=== PATIENT | male | born 1975 | race Caucasian/White ===

== ENCOUNTER 2020-03-19 10:56 | Outpatient (CLI) | payer OTHER, SELFPAY ==
--- NOTE | ~2020-03-19 | XR_ITS ---
XR thoracic spine 2V DATE: 03/19/2020 11:25 INDICATION: Generalized low back pain, thoracic back pain. No known injury. TECHNIQUE: AP, lateral, swimmer views COMPARISON: None FINDINGS: There is dextroscoliosis of the thoracic spine. No fracture or dislocation or bone destruction. The thoracic pedicles are intact. No paraspinal soft tissue thickening. IMPRESSION: Dextroscoliosis Reviewed, dictated and finalized at location B. ONE PROCESSOR IMPRESSION: Dextroscoliosis
--- NOTE | ~2020-03-19 | XR_ITS ---
XR lumbar spine 2-3V DATE: 03/19/2020 11:25 INDICATION: Generalized low back pain. No recent injury. TECHNIQUE: AP, lateral and coned lateral lumbosacral views COMPARISON: None FINDINGS: There is a lumbarized S1 vertebra. No fracture or bone destruction or spondylolisthesis. Lumbar and lumbosacral interspaces are well pre served. Mild degenerative spurring at L4-5. The sacroiliac joints are intact. IMPRESSION: Lumbarized S1 Mild degenerative change Reviewed, dictated and finalized at location B. X RAY TECHNOLOGIST
== END 2020-03-19 10:57 | disposition home or self-care (01) ==
LOC: CHSIMG 10:57
PROVIDERS: PCP Nurse Practitioner Family; Visit Provider Nurse Practitioner Family
DX: M54.5 Low back pain (principal); M54.6 Pain in thoracic spine
CPT/HCPCS: 72070; 72100

== ENCOUNTER 2020-03-26 07:57 | Outpatient (RCR) | payer OTHER, SELFPAY ==
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
== END 2020-04-16 09:52 | disposition home or self-care (01) ==
LOC: CHSPT 07:57
PROVIDERS: PCP Nurse Practitioner Family; Visit Provider Nurse Practitioner Family
DX: M54.5 Low back pain (principal); M54.6 Pain in thoracic spine
CPT/HCPCS: 97014; 97110; 97161; G0283

== ENCOUNTER 2020-11-26 19:08 | Emergency (ER) | payer OTHER, SELFPAY ==
--- NOTE | ~2020-11-26 | XR_ITS ---
XR chest 2V DATE: 11/26/2020 21:10 INDICATION: Central chest pressure, shortness of breath for 3 days TECHNIQUE: PA and lateral views COMPARISON: None FINDINGS: Normal heart size. No pulmonary infiltrate or consolidation, pleural effusion or pulmonary vascular congestion or pneumothorax. There is mild to moderate dextroscoliosis of the thoracic spine. IMPRESSION: No active cardiopulmonary disease Reviewed, dictated and finalized at location A.
[2020-11-26 19:15] VITALS: BP 132/87; PULSE 92; RESP 20; TEMP 36.9; O2SAT 98
--- NOTE | 2020-11-26 19:46 | ED.SOB ---
HPI - SOB/Dyspnea General Chief Complaint: Upper Respiratory Infection Stated Complaint: fatigue/trouble breathing Time Seen by Provider: 11/26/20 19:47 Source: patient Mode of arrival: ambulatory Limitations: no limitations History of Present Illness HPI Narrative: 45-year-old man with a history of smoking comes in today complaining of chest tightness, shortness of breath cough and nasal congestion. States the shortness of breath is worse during the coughing episodes. He noticed that today during his outdoor walk that he was walking slower than usual. He denies prior similar symptoms. States that he had asthma when he was younger. He was exposed to Covid during a social event 2 days ago. MD elicited complaint: shortness of breath, cough and pain with inspiration ( Chest tightness) Pertinent past history: asthma Onset (ago): day(s) (2) Timing: constant and progressively worsening Severity: moderate Exacerbating factors: coughing and inspiration Relieving factors: rest Known history of: asthma Associated symptoms: chest pain ( chest tightness), pain with inspiration and cough Treatment prior to arrival: none Related Data Home oxygen amount: none Allergies Allergy/AdvReac Type Severity Reaction Status Date / Time No Known Allergies Allergy Unverified 03/19/20 08:23 Review of Systems Review of Systems: All systems reviewed & are unremarkable except as noted in HPI and below Constitutional: Constitutional: Denies chills and Denies fever(s) Eyes: Eyes: Denies change in vision and Denies photophobia ENT: Reports nasal congestion and Denies sore throat Cardiovascular: Cardiovascular: Reports as per HPI and Denies radiating jaw, neck or arm pain Respiratory: Respiratory: Reports cough and Reports dyspnea Gastrointestinal: Gastrointestinal: Denies abdominal pain, Denies diarrhea, Denies nausea and Denies vomiting Genitourinary: Genitourinary: Denies hematuria, Denies dysuria and Denies urinary frequency Musculoskeletal: Musculoskeletal: Denies back pain, Denies arthralgias and Denies joint swelling Integumentary/Breasts: Skin/Breast: Denies pruritus, Denies erythema and Denies rash Neurologic: Denies vertigo, Denies dizziness, Denies syncope and Denies weakness Hematologic/Lymphatic: Hematologic/Lymphatic: Denies easy bleeding and Denies easy bruising Allergic/Immunologic: Allergic/Immunologic: Denies lip swelling and Denies tongue swelling [facility] Past Medical History Medical History (Updated 11/26/20 @ 22:10 by Diego Cheek MD) Asthma Dextroscoliosis Surgical History Surgical History (Updated 03/19/20 @ 10:29 by Soraida Johnson MA) History of hand surgery Family History Family History (Updated 03/19/20 @ 10:30 by Soraida Johnson MA) Mother Diabetes mellitus Father Tremor Social History Social History Smoking packs per day: 1 Smoking cigarettes per day: 20.0 Years smoked: 25 Smoking pack-years: 25.00 Smoking status: Current every day smoker Alcohol intake: current Alcohol use details: 3 times a week Substance use: never Substance use type: does not use Additional living arrangements comments: 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 No respiratory distress. HENMT: Head: normal to inspection Ears: external ears normal, TM's normal bilaterally and EAC's normal General nose exam: Normal nares present Face and sinus: normal facial exam Mouth: Yes moist mucous membranes Throat: posterior oropharynx normal Eyes: Conjunctivae: conjunctivae normal Pupils: Equal, round and reactive pupils present EOM: EOMs intact bilaterally Resp: Effort & Inspection: normal respiratory effort Auscultation:
--- NOTE | 2020-11-26 19:53 | ECG_ITS ---
Measurements Intervals [place] Rate: 84 P: 42 AR: 159 QRS: -23 QRSD: 113 T: 31 QT: 364 QTc: 432 Interpretive Statements SINUS RHYTHM POSSIBLE LEFT ATRIAL ENLARGEMENT INTRAVENTRICULAR CONDUCTION DELAY POOR R WAVE PROGRESSION, ANTERIOR LEADS BASELINE WANDER- V4 BORDERLINE ECG Electronically Signed On 11-27-2020 7:02:37 CDT by Fernie Resendiz D.O.
[2020-11-26 20:21] LABS: Basophils Absolute Auto 0.05 K/mm3 (0.00-0.10); Basophils Percent Auto 0.5 % (0.0-1.0); Eosinophils Absolute Auto 0.26 K/mm3 (0.02-0.50); Eosinophils Percent Auto 2.4 % (1.0-6.0); Hematocrit 47.5 % (40.0-54.0); Immature Granulocyte Absolute 0.04 K/mm3 (0.00-0.00); Immature Granulocyte Percent A 0.4 % (0.0-0.0); Lymphocytes Absolute Auto 2.02 K/mm3 (1.10-4.50); Lymphocytes Percent Auto 18.9 % (18.0-42.0); Mean Corpuscular HGB Conc 33.7 g/dL (32.0-36.0); Mean Corpuscular Hemoglobin 30.9 pg (27.0-31.0); Mean Corpuscular Volume 91.7 fL (78.0-102.0); Mean Platelet Volume 9.2 fl (8.7-11.0); Monocytes Absolute Auto 0.78 K/mm3 (0.10-0.90); Monocytes Percent Auto 7.3 % (2.0-11.0); Neutrophils Absolute Auto 7.5 K/mm3 (1.7-7.2); Neutrophils Percent Auto 70.5 % (50.0-70.0); Platelet Count Result 250 K/mm3 (150-420); Red Blood Count 5.18 M/mm3 (4.70-6.10); Red Cell Distribution Width 13.4 % (11.6-14.4); White Blood Count 10.7 K/mm3 (4.8-10.8)
[2020-11-26 20:23] LABS: SARS-CoV-2 Ag Negative (Negative)
[2020-11-26] MEDS: ASPIRIN 81 MG CHEWABLE TABLET 324 MG PO (20:25)
[2020-11-26 20:35] LABS: D Dimer 0.37 mg/L (0.19-0.50); Partial Thromboplastin Time 26.9 SEC (23.90-30.70); Prothrombin Time 10.2 Seconds (9.50-12.10)
[2020-11-26 20:38] LABS: Appearance Urine Clear (Clear); Bilirubin Urine Negative (Negative); Color Urine Light Yellow (Yellow); Glucose Urine UA Negative (Negative); Ketones Urine Negative (Negative); Leukocyte Esterase Ur Negative LEU/UL (Negative); Nitrate Urine Negative (Negative); Protein Urine Negative (Negative); Specific Grav Ur 1.015 (1.010-1.020); Urobilinogen Urine 0.2 mg/dL (0.2-1.0)
[2020-11-26 20:41] LABS: Alanine Aminotransferase 96 U/L (16-63); Albumin Level 3.7 g/dL (3.4-5.0); Alkaline Phosphatase 72 U/L (46-116); Anion Gap 8 mmol/L (8-16); Aspartate Amino Transferase 31 U/L (15-37); Bilirubin,Total 0.3 mg/dL (0.00-1.00); Blood Urea Nitrogen 16 mg/dL (7-18); Calcium 8.7 mg/dL (8.5-10.1); Carbon Dioxide 30 mmol/L (21-32); Chloride 104 mmol/L (98-108); Estimated CRCL calculation 99 ml/min; Estimated Glomerular Filt Rate > 60; Glucose 89 mg/dL (70-99); Osmolality Calculated 294 mOsm/kg (285-295); Potassium 3.9 mmol/L (3.5-5.1); Sodium 142 mmol/L (136-145); Total Protein 7.1 g/dL (6.4-8.2); Troponin I 4.5 ng/L (0.00-60.4)
[2020-11-26 20:43] LABS: Add Urine Microscopic? YES; Bacteria Urine Trace /hpf; Blood Urine Trace (Negative); RBC Urine 0-2 /hpf (0-2); WBC Urine 0-3 /hpf (0-3)
[2020-11-26 21:14] VITALS: BP 136/88; PULSE 79; RESP 20; O2SAT 98
[2020-11-26 22:07] VITALS: PULSE 84; RESP 16; O2SAT 98
[2020-11-26] MEDS: predniSONE 20 MG TABLET 60 MG PO (22:08)
[2020-11-26] MEDS: IPRATROPIUM 0.5 MG/ALBUTEROL SULFATE 2.5 MG AMPUL.NEB 3 ML INHALATION (22:10)
[2020-11-26 22:14] LABS: SARS-CoV-2 RNA PCR Negative (Negative)
[2020-11-26 22:16] VITALS: PULSE 78; RESP 16; O2SAT 100
[2020-11-26 22:28] VITALS: BP 113/72; PULSE 75; RESP 20; TEMP 37.2; O2SAT 99
[2020-11-26 22:32] LABS: NT Pro B Type Natriuretic Pept 25 pg/mL (0-125)
== END 2020-11-26 22:31 | disposition home or self-care (01) ==
PROVIDERS: Emergency Provider Emergency Medicine; PCP Nurse Practitioner Family
DX: J98.01 Acute bronchospasm (principal); Z20.822 Contact with and (suspected) exposure to COVID-19
CPT/HCPCS: 36415; 71046; 80053; 81001; 83880; 84484; 85025; 85380; 85610; 85730; 87426; 93005; 94640; 99283; 99284; A9270; C9803; J7512; U0003; U0005

== ENCOUNTER 2021-02-25 15:08 | Outpatient (CLI) | payer OTHER, SELFPAY ==
--- NOTE | 2021-02-25 15:14 | ECG_ITS ---
Measurements Intervals [place] Rate: 90 P: 55 TX: 157 QRS: -6 QRSD: 113 T: 44 QT: 352 QTc: 431 Interpretive Statements SINUS RHYTHM POSSIBLE LEFT ATRIAL ENLARGEMENT INCOMPLETE RIGHT BUNDLE BRANCH BLOCK DELAYED PRECORDIAL R/S TRANSITION BORDERLINE ECG Electronically Signed On 02-25-2021 16:19:00 INSURANCE MARKETING REP by Fernie Resendiz D.O.
[2021-02-25 15:27] LABS: Hemoglobin 15.8 g/dL (14.0-18.0); Mean Corpuscular HGB Conc 33.6 g/dL (32.0-36.0); Mean Corpuscular Hemoglobin 31.5 pg (27.0-31.0); Mean Corpuscular Volume 93.6 fL (78.0-102.0); Mean Platelet Volume 9.1 fl (8.7-11.0); Platelet Count Result 262 K/mm3 (150-420); Red Blood Count 5.02 M/mm3 (4.70-6.10); Red Cell Distribution Width 13.7 % (11.6-14.4); White Blood Count 9.6 K/mm3 (4.8-10.8)
[2021-02-25 16:06] LABS: Alanine Aminotransferase 79 U/L (16-63); Albumin Level 3.6 g/dL (3.4-5.0); Alkaline Phosphatase 73 U/L (46-116); Anion Gap 11 mmol/L (8-16); Aspartate Amino Transferase 22 U/L (15-37); Bilirubin,Total 0.3 mg/dL (0.00-1.00); Blood Urea Nitrogen 14 mg/dL (7-18); Calcium 8.6 mg/dL (8.5-10.1); Carbon Dioxide 27 mmol/L (21-32); Chloride 105 mmol/L (98-108); Estimated Glomerular Filt Rate > 60; Glucose 89 mg/dL (70-99); Lipase 115 U/L (73-393); Osmolality Calculated 295 mOsm/kg (285-295); Potassium 3.9 mmol/L (3.5-5.1); Sodium 143 mmol/L (136-145); Total Protein 6.7 g/dL (6.4-8.2)
== END 2021-02-25 15:09 | disposition home or self-care (01) ==
LOC: CHSCARD 15:14
PROVIDERS: PCP Family Medicine; Visit Provider Family Medicine
DX: R10.11 Right upper quadrant pain (principal)
CPT/HCPCS: 36415; 80053; 83690; 85027; 93005

== ENCOUNTER 2021-03-03 07:14 | Outpatient (CLI) | payer OTHER, SELFPAY ==
--- NOTE | ~2021-03-03 | US_ITS ---
US abdomen limited DATE: 03/03/2021 08:40 INDICATION: Right upper quadrant abdominal pain TECHNIQUE: Real-time imaging of liver, pancreas, gallbladder COMPARISON: None FINDINGS: There is hepatic steatosis. No hepatic space-occupying mass lesion is evident. No gallstone s are detected. Negative sonographic Poole's sign. The common bile duct measures 5 mm, normal. Shaneka l hepatopedal portal venous flow direction. The pancreas is obscured by bowel gas. IMPRESSION: Pancreas is obscured Hepatic steatosis Reviewed, dictated and finalized at Location A. Reviewed, dictated and finalized at location B. REVENUE OFFICER
== END 2021-03-03 07:15 | disposition home or self-care (01) ==
LOC: CHSIMG 07:17
PROVIDERS: PCP Family Medicine; Visit Provider Family Medicine
DX: R10.11 Right upper quadrant pain (principal)
CPT/HCPCS: 76705

== ENCOUNTER 2021-04-07 09:32 | Outpatient (CLI) | payer OTHER, SELFPAY ==
--- NOTE | 2021-04-07 09:36 | EST_ITS ---
Patient Info Name: Jose Rafael Mathew Age: 46 years : 1975 Gender: Male Ht: 69 in Wt: 310 lbs BSA: 2.69 m2 Exam Date: 04/07/2021 10:41 AM Exam Location: [facility] Patient Status: Outpatient Admit Date: 04/07/2021 Staff Ordering Physician: Rafat Waterman DO Attending Provider: Rafat Waterman DO Exam Type: CA stress test treadmill w NM Study Info A nuclear stress test was performed. History/Risk Factors Tobacco Use: Current - Every Day Summary 1. 1. Negative Rodney exercise stress test for ischemic ST changes by ECG criteria. 2. 2. Reduced functional capacity, achieving 8.9 METs of workload. 3. 3. Appropriate HR response to exercise. 4. 4. Appropriate HR recovery at 1 minute post exercise. 5. 5. Nuclear scan to follow and will be reported separately. Please correlate with it. Recommendations * Smoking cessation counseling is recommended for this patient. Protocol: Rodney Stress ECG Details Stage: REST Duration (min): 3 min : 29 sec Speed (mph): 0.0 Grade (%): 0 HR (bpm): 77 SBP (mmHg): --- DBP (mmHg): --- METS: --- Stage: REST Duration (min): 8 min : 31 sec Speed (mph): 0.0 Grade (%): 0 HR (bpm): 87 SBP (mmHg): --- DBP (mmHg): --- METS: --- Stage: STAGE 1 Duration (min): 1 min : 0 sec Speed (mph): 1.7 Grade (%): 10 HR (bpm): 102 SBP (mmHg): --- DBP (mmHg): --- METS: --- Stage: STAGE 1 Duration (min): 2 min : 0 sec Speed (mph): 1.7 Grade (%): 10 HR (bpm): 109 SBP (mmHg): --- DBP (mmHg): --- METS: --- Stage: STAGE 1 Duration (min): 3 min : 0 sec Speed (mph): 1.7 Grade (%): 10 HR (bpm): 118 SBP (mmHg): --- DBP (mmHg): --- METS: --- Stage: STAGE 2 Duration (min): 1 min : 0 sec Speed (mph): 2.5 Grade (%): 12 HR (bpm): 130 SBP (mmHg): --- DBP (mmHg): --- METS: --- Stage: STAGE 2 Duration (min): 2 min : 0 sec Speed (mph): 2.5 Grade (%): 12 HR (bpm): 136 SBP (mmHg): --- DBP (mmHg): --- METS: --- Stage: STAGE 2 Duration (min): 3 min : 0 sec Speed (mph): 2.5 Grade (%): 12 HR (bpm): 144 SBP (mmHg): 149 DBP (mmHg): 81 METS: --- Stage: STAGE 3 Duration (min): 1 min : 0 sec Speed (mph): 3.4 Grade (%): 14 HR (bpm): 146 SBP (mmHg): 149 DBP (mmHg): 81 METS: --- Stage: STAGE 3 Duration (min): 1 min : 0 sec Speed (mph): 3.4 Grade (%): 14 HR (bpm): 146 SBP (mmHg): 149 DBP (mmHg): 81 METS: --- Stage: RECOVERY Duration (min): 0 min : 59 sec Speed (mph): 0.0 Grade (%): 0 HR (bpm): 145 SBP (mmHg): 149 DBP (mmHg): 81 METS: --- Stage: RECOVERY Duration (min): 1 min : 59 sec Speed (mph): 0.0 Grade (%): 0 HR (bpm): 125 SBP (mmHg): 189 DBP (mmHg): 78 METS: --- Stage: RECOVERY Duration (min):
--- NOTE | 2021-04-07 13:30 | WPDCARIOSTRE ---
Nuclear Stress Test INDICATIONS Indications: Dyspnea PROCEDURE Procedure Performed: Myocardial Perf Spect-Multi Procedure: Patient exercised on a standard Rodney protocol and at peak exercise was injected with 31.8 mCi of cardiolyte. Multiple tomographic images were obtained. These are of good quality. There is evidence of large, severe apical lateral perfusion defect and large, severe inferior perfusion defect with stress imaging. A separate resting images were obtained after patient was injected with 10.2 mCi of cardiolyte. Multiple tomographic images were obtained. These are of good quality. There is evidence of large, severe apical lateral perfusion defect and large, severe inferior perfusion defect with rest imaging. CONCLUSION Conclusion: 1. Myocardial perfusion imaging demonstrating fixed large apical lateral and fixed inferior perfusion defects during stress and rest imaging consistent with diaphragmatic attenuation artifact. 2. No evidence of reversible ischemia. 3. Left ventriculogram demonstrates normal ejection fraction of 64%. No wall motion abnormalities. 4. TID score is normal at 0.7.
== END 2021-04-07 09:33 | disposition home or self-care (01) ==
LOC: CHSCARD 09:33
PROVIDERS: PCP Family Medicine; Visit Provider Family Medicine
DX: R07.9 Chest pain, unspecified (principal)
CPT/HCPCS: 78452; 93017; A9502

== ENCOUNTER 2023-02-27 09:01 | Emergency (ER) | payer OTHER, SELFPAY ==
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
--- NOTE | ~2023-02-27 | CT_ITS ---
EXAMINATION: CT lumbar spine wo con DATE: 02/27/2023 09:55 INDICATION: Low back pain. TECHNIQUE: Computed tomography (CT) of the lumbar spine was performed without intravenous contrast. T he dose-length product was 1289.30 mGy-cm. Automated exposure control and iterative reconstruction te vitornique were employed. COMPARISON: None FINDINGS: There is disc narrowing at L5-S1. There is facet hypertrophy at this level with central can al and bilateral neural foraminal stenosis. There is mild loss of vertebral body height at L5 which a ppears chronic. No acute fracture is identified. Lung bases are unremarkable. No significant paraspin al soft tissue abnormality. IMPRESSION: 1. Moderate spondylosis at L5-S1 with associated spinal stenosis. Reviewed, dictated and finalized at location A. REGULATOR REPAIRER HELPER
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
[2023-02-27 09:10] VITALS: BP 155/102; PULSE 67; RESP 20; TEMP 36.7; O2SAT 98
== END 2023-02-27 10:25 | disposition home or self-care (01) ==
LOC: CHSED 10:01
PROVIDERS: Emergency Provider Internal Medicine Critical Care Medicine
DX: R07.89 Other chest pain (principal); M54.41 Lumbago with sciatica, right side; F17.210 Nicotine dependence, cigarettes, uncomplicated; V59.40XA Driver of pick-up truck or van injured in collision with unspecified motor vehicles in traffic accident, initial encounter; Y92.411 Interstate highway as the place of occurrence of the external cause
CPT/HCPCS: 70450; 71045; 72125; 72131; 99284